=== PATIENT | male | born 1995 | race Caucasian/White ===

== ENCOUNTER 2021-12-25 13:38 | Observation (INO) | payer OTHER, MEDICAID, SELFPAY ==
[2021-12-25] VITALS (19 sets, daily range): BP systolic 106–147; BP diastolic 49–87; PULSE 55–90; RESP 8–16; TEMP 36.4–36.8; O2SAT 95–100; BMI 22.3
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
[2021-12-25 15:37] LABS: Add Manual Diff / Slide Review NO; Basophils Absolute Auto 100 /uL (0-100); Basophils Percent Auto 0.4 % (0-2); Eosinophils Absolute Auto 100 /uL (0-450); Eosinophils Percent Auto 0.4 % (2-4); Hematocrit 38.9 % (41-53); Hemoglobin 13.3 g/dL (13.5-17.5); Lymphocytes Absolute Auto 2400 /uL (1100-4500); Lymphocytes Percent Auto 18.2 % (25-40); Mean Corpuscular HGB Conc 34.3 % (30-36); Mean Corpuscular Hemoglobin 32.5 PG (26-34); Mean Corpuscular Volume 94.9 fL (80-100); Monocytes Absolute Auto 900 /uL (0-900); Monocytes Percent Auto 7.1 % (3-14); Neutrophils Absolute Auto 9900 /uL (1500-7000); Neutrophils Percent Auto 73.9 % (50-75); Platelet Count 206 X10^3/uL (150-400); Red Cell Distribution Width 13.5 % (11.6-14.8); White Blood Cell Count 13.4 X10^3/uL (4.5-11.0)
[2021-12-25 15:46] LABS: Alanine Aminotransferase 29 IU/L (<50); Albumin 4.7 g/dL (3.5-5.0); Albumin Globulin Ratio 1.6 (1.0-2.8); Alkaline Phosphatase 34 U/L (38-126); Aspartate Aminotransferase 55 IU/L (17-59); BUN Creatinine Ratio 17.9 (6-22); Blood Urea Nitrogen 15 mg/dL (9-20); Calcium 8.7 mg/dL (8.4-10.2); Carbon Dioxide 25 mmol/L (22-32); Chloride 105 mmol/L (98-107); Estimated Glomerular Filt Rate > 60 mL/min (>60); Globulin 2.9 g/dL (1.7-4.1); Glucose 99 mg/dL (70-100); Sodium 136 mmol/L (137-145); Total Protein 7.6 g/dL (6.3-8.2)
[2021-12-25 15:49] LABS: HEMOLYSIS 152 (0-50); Potassium 5.8 mmol/L (3.4-5.1)
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
[2021-12-25] MEDS: MORPHINE 2 MG/ML INJ IV (16:05)
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
[2021-12-25 17:32] LABS: COVID19 -Nasal RAPID Negative (Negative)
[2021-12-25] MEDS: SODIUM CHLORIDE 0.9% 1,000 ML 1000 ML IV (17:34)
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
--- NOTE | 2021-12-25 18:40 | PM.PREOP ---
Pre-operative Note COVID-19 COVID-19 status: Negative Result date/Date tested (Pos, Neg/Pending): 12/25/21 Criteria for continued procedure: Continuing or worsening of significant or severe pain, Delay expected to result in less-positive ultimate med/surg outcome and Non-surgical alternatives not available or appropriate per current SOC Interval Note History & Physical reviewed/Exam performed by Physician: Yes Changes to H&P: No
[2021-12-25] MEDS: CIPROFLOXACIN 400 MG/200 ML PIGGYBACK 200 MG IV (18:58)
[2021-12-25] MEDS: LACTATED RINGERS 1,000 ML 42 ML IV (21:06)
--- NOTE | 2021-12-25 21:36 | SUR.OPER ---
Supine on padded OR bed, head on pillow, arms secured on padded arm boards at <90 degrees abduction, legs uncrossed, safety belt at thigh, tape over blanket over lower legs.
[2021-12-25] MEDS: BUPIVACAINE 0.5% (PF) VIAL 30 ML INJ (22:00)
[2021-12-25] MEDS: BACITRACIN 28 GM OINT 1 APPLIC TOP (22:13)
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
== END 2021-12-25 23:07 | disposition home or self-care (01) ==
LOC: ED 15:51 → AC 18:44
PROVIDERS: Admitting Provider Urology; Emergency Provider Emergency Medicine; Family Provider Family Medicine; PCP Family Medicine; Referring Provider Emergency Medicine; Visit Provider Urology
PROC: 0VT90ZZ Resection of Right Testis, Open Approach (ICD-10-PCS; CPT 54520; principal; 2021-12-25 19:45)
DX: S38.02XA Crushing injury of scrotum and testis, initial encounter (principal); V20.4XXA Motorcycle driver injured in collision with pedestrian or animal in traffic accident, initial encounter; M79.671 Pain in right foot; F17.210 Nicotine dependence, cigarettes, uncomplicated; Z20.822 Contact with and (suspected) exposure to COVID-19
CPT/HCPCS: 54520; 70450; 71260; 72125; 73630; 74177; 76870; 80053; 85025; 87635; 96361; 96365; 96375; 99219; 99285; C9803; G0378; J0744; J1100; J1885; J2250; J2270; J2405; J2704; J3010; Q9967

== ENCOUNTER 2022-01-23 12:28 | Emergency (ER) | payer OTHER, MEDICAID, SELFPAY ==
[2022-01-23 12:31] VITALS: BP 135/80; PULSE 96; RESP 15; TEMP 36.3; O2SAT 99; BMI 22.3
--- NOTE | 2022-01-23 12:35 | DI.RAD.S_ITS ---
PROCEDURE: XR KNEE LT 3V INDICATIONS: knee pain/swelling TECHNIQUE: 3 views of the knee were acquired. COMPARISON: None. FINDINGS: Bones: No fractures or dislocations. No suspicious bony lesions. Soft tissues: Moderate joint effusion. No suspicious soft tissue calcifications. IMPRESSION: Moderate joint effusion. No fracture. Approved by: Julien Baptiste M.D. on 01/23/2022 at 12:24
[2022-01-23] MEDS: KETOROLAC 30 MG/ML VIAL 15 MG IM (13:54)
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
== END 2022-01-23 14:28 | disposition home or self-care (01) ==
PROVIDERS: Emergency Provider Nurse Practitioner Critical Care Medicine; Family Provider Family Medicine; PCP Family Medicine
DX: M25.462 Effusion, left knee (principal)
CPT/HCPCS: 73562; 96372; 99283; J1885